=== PATIENT | male | born 1985 ===

== ENCOUNTER 2016-12-30 20:43 | Emergency (ER) | payer OTHER, MEDICAID ==
[2016-12-30 21:07] VITALS: BP 108/58; PULSE 76; RESP 18; TEMP 98; O2SAT 96
[2016-12-30] MEDS ORDERED: TDAP Vaccine 0.5 mL Syr IM ONE (21:12)
--- NOTE | 2016-12-30 21:26 | ED PDOC ---
Lower Extremity Pain/Injury Time Seen by Provider: 12/30/16 21:09 Chief Complaint (Nursing): Lower Extremity Problem/Injury Chief Complaint (Provider): Lower Extremity Problem/Injury History Per: Patient History/Exam Limitations: no limitations Onset/Duration Of Symptoms: Days (x1) Additional Complaint(s): aKl Mathis, 31 year old male presents to the ED on 12/30/16 with a foot injury occurring 1 day prior to arrival. The patient states that while at work, he stepped on a nail with his left foot. The nail went through his boot. He denies any numbness, tingling, or fever. Of note, the patient's TDAP is not up to date. Past Medical History Reviewed: Historical Data, Nursing Documentation, Vital Signs Vital Signs: Last Vital Signs Temp 98 F 12/30/16 21:04 Pulse 76 12/30/16 21:04 Resp 18 12/30/16 21:04 BP 108/58 L 12/30/16 21:04 Pulse Ox 96 12/30/16 21:04 - Medical History PMH: Seizures - Family History Family History: States: Unknown Family Hx - Home Medications Home Medications: Ambulatory Orders Medication Instructions Recorded Dicyclomine [Bentyl] 10 mg PO QID PRN #10 cap 11/19/14 oxyCODONE/Acetaminophen [Percocet 1 ea PO Q6 PRN #10 tab 01/28/15 5/325 mg Tab] Ciprofloxacin [Cipro] 500 mg PO BID #14 tab 12/30/16 - Allergies Allergies/Adverse Reactions: Allergies Allergy/AdvReac Type Severity Reaction Status Date / Time No Known Allergies Allergy Verified 11/18/14 19:39 Review of Systems Constitutional: Negative for: Fever Musculoskeletal: Positive for: Foot Pain (left foot pain) Neurological: Negative for: Numbness (no tingling) Physical Exam - Reviewed Nursing Documentation Reviewed: Yes Vital Signs Reviewed: Yes - Physical Exam Appears: Positive for: Non-toxic, No Acute Distress Head Exam: Positive for: ATRAUMATIC, NORMOCEPHALIC Skin: Positive for: Normal Color, Warm, Dry Eye Exam: Positive for: Normal appearance ENT: Positive for: Normal ENT Inspection Neck: Positive for: Normal Cardiovascular/Chest: Positive for: Regular Rate, Rhythm, Chest Non Tender Respiratory: Positive for: Normal Breath Sounds. Negative for: Respiratory Distress Gastrointestinal/Abdominal: Positive for: Normal Exam Back: Positive for: Normal Inspection Extremity: Positive for: Other (On plantar surface of left foot small, superficial puncture wound w/o surrounding erythema or active bleeding) Neurologic/Psych: Positive for: Alert, Oriented (x3) - ECG O2 Sat by Pulse Oximetry: 96 (RA) Pulse Ox Interpretation: Normal Medical Decision Making Medical Decision Makin:09 Initial Impression: Left Foot Injury Initial Plan: * TDAP Vaccine 0.5 ml IM Once Scribe Attestation: Documented by Sharon Xiao, acting as a scribe for Quan Figueroa PA-C. Provider Scribe Attestation: All medical record entries made by the Scribe were at my direction and personally dictated by me. I have reviewed the chart and agree that the record accurately reflects my personal performance of the history, physical exam, medical decision making, and the department course for this patient. I have also personally directed, reviewed, and agree with the discharge instructions and disposition. Disposition - Clinical Impression Clinical Impression: Puncture wound - Patient ED Disposition Is Patient to be Admitted: No - Disposition Referrals: [facility] [Outside] Disposition: Routine/Home Disposition Time: 22:40 Condition: STABLE Prescriptions: Ciprofloxacin [Cipro] 500 mg PO BID #14 tab Instructions: Puncture Wound (ED) Print Language: AMHARIC
== END 2016-12-30 22:18 | disposition home or self-care (01) ==
LOC: H.ER 20:43
DX: S91.332A Puncture wound without foreign body, left foot, initial encounter (principal); W45.0XXA Nail entering through skin, initial encounter; Y99.0 Civilian activity done for income or pay

== ENCOUNTER 2017-09-30 09:22 | Emergency (ER) | payer MEDICAID, OTHER ==
[2017-09-30 09:39] VITALS: BMI 32.1
[2017-09-30 09:40] VITALS: BP 103/62; PULSE 70; RESP 20; TEMP 97.8; O2SAT 98
[2017-09-30] MEDS ORDERED: Albuterol-Ipratrop 3 mg / 0.5 (3 ml) UD INH STA (10:31)
--- NOTE | 2017-09-30 10:38 | ED PDOC ---
HPI: General Adult Time Seen by Provider: 09/30/17 10:17 Chief Complaint (Nursing): Flu-like Symptoms Chief Complaint (Provider): cough, fever History Per: Patient Additional Complaint(s): 32-year-old male presents to emergency department with fever, body aches and cough that started yesterday. Patient has slight wheezing and mild shortness of breath. Denies chest pain. Patient is taking Motrin which has helped somewhat with fever and body aches. He denies any nausea or vomiting. PMD: Dr. Reddy Past Medical History Reviewed: Historical Data, Nursing Documentation, Vital Signs Vital Signs: Last Vital Signs Temp 97.8 F 09/30/17 09:39 Pulse 70 09/30/17 09:39 Resp 20 09/30/17 09:39 BP 103/62 09/30/17 09:39 Pulse Ox 98 09/30/17 10:38 - Medical History PMH: Seizures - Family History Family History: States: No Known Family Hx - Living Arrangements Living Arrangements: With Family - Social History Current smoker - smoking cessation education provided: Yes (2 cigars a day) Alcohol: None Drugs: Denies - Home Medications Home Medications: Ambulatory Orders Medication Instructions Recorded Dicyclomine [Bentyl] 10 mg PO QID PRN #10 cap 11/19/14 oxyCODONE/Acetaminophen [Percocet 1 ea PO Q6 PRN #10 tab 01/28/15 5/325 mg Tab] Ciprofloxacin [Cipro] 500 mg PO BID #14 tab 12/30/16 Albuterol HFA [Ventolin HFA 90 1 puff IH ASDIR #1 unit 09/30/17 mcg/actuation (8 g)] Benzonatate 200 mg PO TID PRN #20 capsule 09/30/17 Oseltamivir Phosphate [Tamiflu] 75 mg PO BID #10 capsule 09/30/17 - Allergies Allergies/Adverse Reactions: Allergies Allergy/AdvReac Type Severity Reaction Status Date / Time No Known Allergies Allergy Verified 11/18/14 19:39 Review of Systems ROS Statement: Except As Marked, All Systems Reviewed And Found Negative Constitutional: Positive for: Fever, Chills, Other (body aches) Cardiovascular: Negative for: Chest Pain Respiratory: Positive for: Cough, Shortness of Breath, Wheezing Gastrointestinal: Negative for: Nausea, Vomiting Neurological: Positive for: Headache. Negative for: Dizziness Physical Exam - Reviewed Nursing Documentation Reviewed: Yes Vital Signs Reviewed: Yes - Physical Exam Appears: Positive for: Well, Non-toxic, No Acute Distress Skin: Negative for: Rash Eye Exam: Positive for: Normal appearance ENT: Positive for: Pharyngeal Erythema, Tonsillar Swelling. Negative for: Tonsillar Exudate Cardiovascular/Chest: Positive for: Regular Rate, Rhythm Respiratory: Positive for: Normal Breath Sounds, Wheezing. Negative for: Accessory Muscle Use, Respiratory Distress Gastrointestinal/Abdominal: Positive for: Soft. Negative for: Tenderness Extremity: Positive for: Normal ROM Neurologic/Psych: Positive for: Alert, Oriented - ECG O2 Sat by Pulse Oximetry: 98 Pulse Ox Interpretation: Normal - Other Rad CXR X-Ray: Interpreted by Me, Viewed By Me X-Ray Interpretation: see below Nebulizer Treatments/Peak Flow - Duonebs Number of Bronchodilator Doses given?: 1 - Pre/Post Peak Flow Pre Treatment Peak Flow: 250 Post treatment Peak Flow: 300 - Steroid Treatment Steroid: Not Clinically Indicated - Clinical Response Clinical Response: Improved Medical Decision Making Medical Decision Makin-year-old male with flulike symptoms Plan: Flu swab Rapid strep CXR Duoneb x 1 motrin CXR: IMPRESSION: Poor inspiration with low lung volumes, crowded bronchovascular markings and mild bibasilar atelectasis. The interstitial markings are also slightly increased and coarsened with a few scattered peribronchial cuffing changes. Rule out sequela of reactive/ inflammatory. Disease or viral illness. Flu B is positive. Prescriptions given for Tamiflu, Tessalon Perles and Ventolin inhaler. Patient was advised to take prescription meds along with NSAIDs for fever and bodyaches. Otherwise follow-up with primary doctor or clinic in 2-3 days. Disposition - Clinical Impression Clinical Impression: Influenza B - Patient ED Disposition Is Patient to be Admitted: No Counseled Patient/Family Regarding: Studies Performed, Diagnosis, Need For Followup, Rx Given - Disposition Referrals: Lisbeth Bradley MD [Primary Care Provider] - Disposition: Routine/Home Disposition Time: 11:09 Condition: STABLE Additional Instructions: Take prescription medications as directed. Take [id number] Tylenol every 4 hours and Motrin every 6 hours for fever and body aches. Rest and drink plenty of fluids. Follow-up with primary doctor in 2-3 days. Prescriptions: Albuterol HFA [Ventolin HFA 90 mcg/actuation (8 g)] 1 puff IH ASDIR #1 unit Benzonatate 200 mg PO TID PRN #20 capsule PRN Reason: Cough Oseltamivir Phosphate [Tamiflu] 75 mg PO BID #10 capsule Instructions: Influenza (ED) Forms: [email or web address] (Turkmen), [facility] ED School/Work Excuse
[2017-09-30] MEDS ORDERED: Albuterol-Ipratrop 3 mg / 0.5 (3 ml) UD ONE (10:42)
--- NOTE | 2017-09-30 10:55 | RAD ---
HISTORY: cough COMPARISON: No prior. TECHNIQUE: Chest PA and lateral FINDINGS: LUNGS: Poor inspiration with low lung volumes, crowded bronchovascular markings and mild bibasilar atelectasis. The interstitial markings are also slightly increased and coarsened with a few scattered peribronchial cuffing changes. Rule out sequela of reactive/ inflammatory. Disease or viral illness PLEURA: No significant pleural effusion identified. No pneumothorax apparent. CARDIOVASCULAR: Normal. OSSEOUS STRUCTURES: No significant abnormalities. VISUALIZED UPPER ABDOMEN: Normal. OTHER FINDINGS: None. IMPRESSION: Poor inspiration with low lung volumes, crowded bronchovascular markings and mild bibasilar atelectasis. The interstitial markings are also slightly increased and coarsened with a few scattered peribronchial cuffing changes. Rule out sequela of reactive/ inflammatory. Disease or viral illness
== END 2017-09-30 11:34 | disposition home or self-care (01) ==
LOC: H.ER 09:22 → SUPCPDRO 09:22 → H.ER 11:34
DX: J11.1 Influenza due to unidentified influenza virus with other respiratory manifestations (principal)

== ENCOUNTER 2017-12-27 01:11 | Emergency (ER) | payer OTHER ==
[2017-12-27 01:11] VITALS: BMI 32.1
[2017-12-27 01:21] VITALS: O2SAT 98
[2017-12-27] MEDS ORDERED: Oxycodone/Acetaminophen 5/325 mg Tab ONE (01:48)
[2017-12-27] MEDS: Oxycodone/Acetaminophen 5/325 mg Tab PO ONE (01:50)
--- NOTE | 2017-12-27 02:29 | ED PDOC ---
HPI: Trauma/Fall - HPI Time Seen by Provider: 12/27/17 01:20 Chief Complaint (Nursing): Trauma Chief Complaint (Provider): Fall Type Injury History Per: Patient History/Exam Limitations: no limitations Onset/Duration Of Symptoms: Hrs (earlier this night) Injury Occurred (Timing): Hours Ago: (earlier tonight) Location Of Injury: Left: Leg Associated Symptoms: denies: LOC Additional Complaint(s): 32 year old male presents to ED with complaints of left leg pain since earlier tonight and has no past medical history. Patient states he fell from a platform at work earlier tonight and sustained impact to his left thigh. Notes that he fell around 5 feet. PCP: None Past Medical History Reviewed: Historical Data, Nursing Documentation, Vital Signs Vital Signs: Last Vital Signs Temp 98.4 F 12/27/17 01:20 Pulse 94 H 12/27/17 01:20 Resp 16 12/27/17 01:20 BP 134/80 12/27/17 01:20 Pulse Ox 98 12/27/17 02:38 - Medical History PMH: No Chronic Diseases, Seizures - Surgical History Surgical History: No Surg Hx - Family History Family History: States: Unknown Family Hx - Social History Current smoker - smoking cessation education provided: Yes (occasionally) Ex-Smoker (has not smoked in the last 12 months): No Drugs: Denies - Home Medications Home Medications: Ambulatory Orders Medication Instructions Recorded Dicyclomine [Bentyl] 10 mg PO QID PRN #10 cap 11/19/14 oxyCODONE/Acetaminophen [Percocet 1 ea PO Q6 PRN #10 tab 01/28/15 5/325 mg Tab] Ciprofloxacin [Cipro] 500 mg PO BID #14 tab 12/30/16 Albuterol HFA [Ventolin HFA 90 1 puff IH ASDIR #1 unit 09/30/17 mcg/actuation (8 g)] Benzonatate 200 mg PO TID PRN #20 capsule 09/30/17 Oseltamivir Phosphate [Tamiflu] 75 mg PO BID #10 capsule 09/30/17 - Allergies Allergies/Adverse Reactions: Allergies Allergy/AdvReac Type Severity Reaction Status Date / Time No Known Allergies Allergy Verified 11/18/14 19:39 Review of Systems ROS Statement: Except As Marked, All Systems Reviewed And Found Negative Musculoskeletal: Positive for: Leg Pain (left) Physical Exam - Reviewed Nursing Documentation Reviewed: Yes Vital Signs Reviewed: Yes - Physical Exam Appears: Positive for: Non-toxic, No Acute Distress Head Exam: Positive for: NORMOCEPHALIC Skin: Positive for: Normal Color, Warm, Dry Pulses-Dorsalis Pedis (L): 2+ Extremity: Positive for: Normal ROM ((+) full ROM to left hip and knee, full ability to flex and extend at left hip), Tenderness (minimal tenderness to left thigh. No tenderness to left hip), Capillary Refill (<2 seconds), Other ((+) hematoma on left hip, neurovascularly intact). Negative for: Deformity Neurologic/Psych: Positive for: Alert, Oriented. Negative for: Motor/Sensory Deficits - ECG O2 Sat by Pulse Oximetry: 98 (RA) Pulse Ox Interpretation: Normal Medical Decision Making Medical Decision Makin Initial impression: leg hematoma status post fall Initial plan: * Percocet 1 tab PO * XR FEMUR LEFT * XR HIP W/ PELVIS LEFT * Re-eval 0315 XRs: negative as read by attending provider. Patient advised to administer towel compresses at home as well as take Motrin for pain. Patient notes improvement in pain and is stable for discharge home. Scribe Attestation: Documented by Shakira Rebolledo acting as a scribe for Elmo Guerra MD. Scribe Attestation: All medical record entries made by the Scribe were at my direction and personally dictated by me. I have reviewed the chart and agree that the record accurately reflects my personal performance of the history, physical exam, medical decision making, and the department course for this patient. I have also personally directed, reviewed, and agree with the discharge instructions and disposition. Disposition - Clinical Impression Clinical Impression: Leg pain - Disposition Disposition: Routine/Home Disposition Time: 03:15 Condition: IMPROVED Additional Instructions: follow up with your primary doctor in 1-2 days take motrin for pain return to the ED immediately with any numbness weakness or other concerning symptoms Instructions: Muscle and Bone Pain (DC) Forms: [employer] (Malaysian), [facility] School/Work Excuse
[2017-12-27 03:32] VITALS: BP 124/86; PULSE 83; RESP 18; TEMP 97.7
--- NOTE | 2017-12-27 09:00 | RAD ---
PROCEDURE: Left Hip X-ray Radiographs. HISTORY: sp fall COMPARISON: CT scan of the abdomen and pelvis dated 11/18/2014. FINDINGS: BONES: No acute fracture. JOINTS: Normal. SOFT TISSUES: Normal. OTHER FINDINGS: None. IMPRESSION: No demonstrated fracture or dislocation.
--- NOTE | 2017-12-27 09:01 | RAD ---
PROCEDURE: Left Femur Radiographs. HISTORY: sp fall COMPARISON: None. TECHNIQUE: AP and Lateral Radiographs of the left femur. FINDINGS: FEMUR: No acute fracture. SOFT TISSUES: Normal. OTHER FINDINGS: None. IMPRESSION: Unremarkable radiographs of the left femur.
== END 2017-12-27 03:35 | disposition home or self-care (01) ==
LOC: H.ER 01:11
DX: M79.605 Pain in left leg (principal); M25.552 Pain in left hip; W19.XXXA Unspecified fall, initial encounter; Y92.89 Other specified places as the place of occurrence of the external cause

== ENCOUNTER 2018-02-02 12:06 | Emergency (ER) | payer OTHER ==
[2018-02-02 12:06] VITALS: BMI 32.1
[2018-02-02 12:18] VITALS: BP 115/69; PULSE 76; RESP 16; TEMP 97.9; O2SAT 97
--- NOTE | 2018-02-02 12:56 | ED PDOC ---
HPI: Back Time Seen by Provider: 02/02/18 12:23 Chief Complaint (Nursing): Back Pain Chief Complaint (Provider): Back Pain History Per: Patient History/Exam Limitations: no limitations Onset/Duration Of Symptoms: Days (x4) Current Symptoms Are (Timing): Still Present Quality Of Discomfort: "Pain" Associated Symptoms: None Exacerbating Factor(s): Movement Additional Complaint(s): Kal Mathis is a 32 year old male, with no significant past medical history, who presents to the emergency department complaining of lower back pain onset for x3 days. 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 Patient reports last month he injured his hip and leg after he fell from a loading truck at work. Patient is taking motrin for pain but with no relief. He denies similar back pain in the past. He denies any numbness or tingling, weakness, dysuria, incontinence, fever or chills. No further medical complaints. PMD: None provided. Past Medical History Reviewed: Historical Data, Nursing Documentation, Vital Signs Vital Signs: Last Vital Signs Temp 97.9 F 02/02/18 12:16 Pulse 76 02/02/18 12:16 Resp 16 02/02/18 12:16 BP 115/69 02/02/18 12:16 Pulse Ox 97 02/02/18 12:16 - Medical History PMH: Seizures - Surgical History Surgical History: No Surg Hx - Family History Family History: States: Unknown Family Hx - Social History Current smoker - smoking cessation education provided: Yes (light smoker) Alcohol: None Drugs: Denies - Home Medications Home Medications: Ambulatory Orders Medication Instructions Recorded Dicyclomine [Bentyl] 10 mg PO QID PRN #10 cap 11/19/14 oxyCODONE/Acetaminophen [Percocet 1 ea PO Q6 PRN #10 tab 01/28/15 5/325 mg Tab] Ciprofloxacin [Cipro] 500 mg PO BID #14 tab 12/30/16 Albuterol HFA [Ventolin HFA 90 1 puff IH ASDIR #1 unit 09/30/17 mcg/actuation (8 g)] Benzonatate 200 mg PO TID PRN #20 capsule 09/30/17 Oseltamivir Phosphate [Tamiflu] 75 mg PO BID #10 capsule 09/30/17 Cyclobenzaprine [Cyclobenzaprine 10 mg PO Q8H #20 tab 02/02/18 HCl] Ibuprofen [Motrin Tab] 800 mg PO Q6H PRN #20 tab 02/02/18 - Allergies Allergies/Adverse Reactions: Allergies Allergy/AdvReac Type Severity Reaction Status Date / Time No Known Allergies Allergy Verified 11/18/14 19:39 Review of Systems ROS Statement: Except As Marked, All Systems Reviewed And Found Negative Constitutional: Negative for: Fever, Chills Genitourinary Male: Negative for: Dysuria, Incontinence Musculoskeletal: Positive for: Back Pain (lower) Neurological: Negative for: Weakness, Numbness (tingling) Physical Exam - Reviewed Nursing Documentation Reviewed: Yes Vital Signs Reviewed: Yes - Physical Exam Appears: Positive for: Non-toxic Head Exam: Positive for: ATRAUMATIC, NORMOCEPHALIC Skin: Positive for: Normal Color, Warm, Dry Eye Exam: Positive for: Normal appearance Neck: Positive for: Painless ROM Respiratory: Negative for: Respiratory Distress Back: Positive for: Other (+ Straight leg raise test. Midline tenderness). Negative for: L CVA Tenderness, R CVA Tenderness Extremity: Positive for: Normal ROM (upper and lower extremities). Negative for : Deformity, Swelling Neurologic/Psych: Positive for: Alert, Oriented. Negative for: Motor/Sensory Deficits - ECG O2 Sat by Pulse Oximetry: 97 (RA) Pulse Ox Interpretation: Normal Medical Decision Making Medical Decision Making: Time: 12:23 Initial Impression: Sciatica Initial Plan: --EKG --CMP --Troponin I --CBC w/ differential --Chest two views (PA/LAT) [RAD] --Reevaluation XR - without acute dislocation or fracture Scribe Attestation: Documented by Donnell Staples, acting as a scribe for Sindhu Simpson PA-C Provider Scribe Attestation: All medical record entries made by the Scribe were at my direction and personally dictated by me. I have reviewed the chart and agree that the record accurately reflects my personal performance of the history, physical exam, medical decision making, and the department course for this patient. I have also personally directed, reviewed, and agree with the discharge instructions and disposition. Disposition - Clinical Impression Clinical Impression: Sciatica - Patient ED Disposition Is Patient to be Admitted: No Counseled Patient/Family Regarding: Diagnosis, Need For Followup, Rx Given - Disposition Referrals: Lukas Fischer III, MD [Staff Provider] - Disposition: Routine/Home Disposition Time: 14:01 Condition: STABLE Prescriptions: Cyclobenzaprine [Cyclobenzaprine HCl] 10 mg PO Q8H #20 tab Ibuprofen [Motrin Tab] 800 mg PO Q6H PRN #20 tab PRN Reason: Pain Instructions: Sciatica (DC) Forms: [employer] (Japanese)
--- NOTE | 2018-02-02 14:06 | RAD ---
PROCEDURE: Radiographs of the Lumbar Spine. HISTORY: low back pain, fell at work 1 month ago COMPARISON: CT scan of the abdomen pelvis dated 11/18/2014. FINDINGS: BONES: Normal alignment. No listhesis. No fracture. DISC SPACES: Unremarkable. OTHER FINDINGS: None. IMPRESSION: Unremarkable radiographs of the lumbar spine.
== END 2018-02-02 14:10 | disposition home or self-care (01) ==
LOC: H.ER 12:06
DX: M54.9 Dorsalgia, unspecified (principal); M54.30 Sciatica, unspecified side; X50.9XXA Other and unspecified overexertion or strenuous movements or postures, initial encounter; Y99.0 Civilian activity done for income or pay